=== PATIENT | female | born 1990 | race Caucasian/White ===

== ENCOUNTER 2017-06-10 04:09 | Emergency (ER) | payer MEDICAID ==
[~2017-06-10] VITALS: Ht 170.2 cm; Wt 64.0 kg
[~2017-06-10 04:09] MED LIST: IBUP-1222 PO; OXYC-302 PO; PREN-2 PO
[2017-06-10 04:25] LABS: HCG UR LOT HCG7030192
[2017-06-10 04:32] LABS: HCG UR OBC PASS
[2017-06-10] MEDS ORDERED: DICYCLOMINE 20 MG TABLET PO ONE (05:00)
[2017-06-10 05:15] LABS: HEMATOCRIT 38.2 % (34.6-47.8); HEMOGLOBIN 13.1 g/dL (11.7-16.4); WHITE BLOOD COUNT 5.5 x10^3/uL (3.4-10)
[2017-06-10 05:24] LABS: BLOOD UREA NITROGEN 9 mg/dL (7-18)
[2017-06-10] MEDS ORDERED: POTASSIUM CHLORIDE 20 MEQ TAB.ER.PRT ONE (05:37)
[2017-06-10 05:58] VITALS: BP 108/64
[2017-06-10] MEDS ORDERED: POTASSIUM CHLORIDE 20 MEQ TAB.ER.PRT PO ONE (06:00)
== END 2017-06-10 06:00 | disposition home or self-care (01) ==
LOC: ED 05:12
DX: K52.9 Noninfective gastroenteritis and colitis, unspecified (principal); E87.6 Hypokalemia
CPT/HCPCS: 36415; 80048; 81001; 81025; 82040; 85025; 87086; 99284

== ENCOUNTER 2019-05-24 13:19 | Emergency (ER) | payer MEDICAID, OTHER ==
[~2019-05-24] VITALS: Ht 170.2 cm; Wt 58.9 kg
[2019-05-24 14:03] LABS: BASOPHILS # (AUTO) 0.02 x10^3/uL (0-0.1); BASOPHILS % (AUTO) 0 % (0-1); EOSINOPHILS # (AUTO) 0.06 x10^3/uL (0-0.4); EOSINOPHILS % (AUTO) 1 % (1-7); LYMPHOCYTES # (AUTO) 1.88 x10^3/uL (1-3.4); LYMPHOCYTES % (AUTO) 30 % (22-44); MD NO; MEAN CORPUSCULAR HGB CONC 33.2 g/dL (32.4-35.8); MEAN CORPUSCULAR VOLUME 93.6 fL (80-100); MEAN PLATELET VOLUME 8.6 fL (7.4-10.4); MONOCYTES # (AUTO) 0.28 x10^3/uL (0.2-0.8); MONOCYTES % (AUTO) 5 % (2-9); NEUTROPHILS # (AUTO) 3.98 x10^3/uL (1.8-6.8); NEUTROPHILS % (AUTO) 64 % (42-75); PLATELET COUNT 225 x10^3/uL (130-400); RED BLOOD COUNT 4.65 x10^6/uL (3.82-5.3); RED CELL DISTRIBUTION WIDTH 12.6 % (9.6-15.2)
[2019-05-24 14:13] LABS: ALBUMIN 4.3 g/dL (3.4-5.0); ANION GAP 8 mmol/L (5-15); CALCIUM 9.5 mg/dL (8.5-10.1); CHLORIDE 107 mmol/L (98-107); CREATININE 0.71 mg/dL (0.55-1.02)
--- NOTE | 2019-05-24 14:39 | NUR ---
[employer]: PT AMBULATORY WITH STEADY GAIT TO ROOM FROM LOBBY. FRANKO
--- NOTE | 2019-05-24 14:47 | NUR ---
FIRST CONTACT WITH PT. PT STATES "MY HANDS AND FEET HAVE BEEN GETTING NUMB AND FEET HOT FOR ABOUT ONE WEEK. FOGGY HEADED" PT'S AOX4. RESPS EVEN AND UNLABORED. BP/SPO2 MONITORS IN PLACE. CALL LIGHT WITHIN REACH.
--- NOTE | 2019-05-24 14:53 | NUR ---
PT AMB TO BR AND BACK TO ROOM WITH STEADY GAIT. UA SENT.
[2019-05-24 15:03] LABS: MICROSCOPIC NOT IND
[2019-05-24 15:05] LABS: CULTURE INDICATED? NO
--- NOTE | 2019-05-24 15:29 | NUR ---
THIS RN EST PIV ON R AC. PT TOLERATED WELL.
[2019-05-24] MEDS ORDERED: SODIUM CHLORIDE FLUSH 10ML SYR IVF ONE (15:30)
--- NOTE | 2019-05-24 15:31 | NUR ---
PT TO MRI AT THIS TIME.
[2019-05-24] MEDS ORDERED: GADOTERATE 7.5 MMOL/15 ML SYR ONE (15:49)
--- NOTE | 2019-05-24 16:04 | NUR ---
PT BACK TO ROOM FROM MRI. PT'S AOX4. RESPS EVEN AND UNLABORED.
[2019-05-24 16:59] VITALS: BP 108/81
--- NOTE | 2019-05-24 16:59 | NUR ---
PT RESTING IN [facility]. PT'S AOX4. RESPS EVEN AND UNLABORED. BP/SPO2 MONITORS IN PLACE. CALL LIGHT WITHIN REACH.
--- NOTE | 2019-05-24 17:12 | NUR ---
Patient given discharge instructions and they have confirmed that they understand the instructions. Patient ambulatory with steady gait.
== END 2019-05-24 17:13 | disposition home or self-care (01) ==
LOC: ED 17:05
DX: G62.9 Polyneuropathy, unspecified (principal); H53.8 Other visual disturbances; Z87.891 Personal history of nicotine dependence
CPT/HCPCS: 36415; 70553; 80048; 81003; 82040; 84703; 85025; 99284; A9575